=== PATIENT | female | born 1965 | race Caucasian/White ===

== ENCOUNTER 2023-02-24 14:42 | Emergency (ER) | payer BC ==
[~2023-02-24] VITALS: Ht 162.6 cm; Wt 97.5 kg
[2023-02-24 16:48] VITALS: BP 130/78; TEMP 98.3; O2SAT 98
== END 2023-02-24 16:40 | disposition home or self-care (01) ==
LOC: ER 14:53
DX: S61.312A Laceration without foreign body of right middle finger with damage to nail, initial encounter (principal); I10 Essential (primary) hypertension; W26.0XXA Contact with knife, initial encounter; Y93.89 Activity, other specified; Y92.89 Other specified places as the place of occurrence of the external cause; Y99.8 Other external cause status
CPT/HCPCS: 99283; 12001; 73140; A6403